=== PATIENT | female | born 1995 | race African-American/Black ===

== ENCOUNTER 2017-08-17 15:39 | Emergency (ER) | payer SELFPAY ==
[2017-08-17] MEDS ORDERED: Albuterol Sulfate 2.5 mg/3 ml Neb ONE (16:48)
--- NOTE | 2017-08-17 17:00 | RAD ---
EXAM: TWO VIEWS CHEST: 08/17/17 COMPARISON: 01/25/17. HISTORY: Cough. FINDINGS: Normal cardiac silhouette. The pulmonary vessels and hilum are normal. No masses or consolidation. N o pneumothorax or osseous abnormalities. IMPRESSION: No acute cardiopulmonary process. POS: [facility]
== END 2017-08-17 17:22 | disposition home or self-care (01) ==
LOC: ERS 15:39
DX: J45.901 Unspecified asthma with (acute) exacerbation (principal)
CPT/HCPCS: 71020; 94640; J7611